=== PATIENT | male | born 2000 | race Caucasian/White ===

== ENCOUNTER 2020-05-13 18:55 | Emergency (ER) | payer OTHER ==
[~2020-05-13] VITALS: Ht 172.7 cm; Wt 54.4 kg
[2020-05-13 18:59] VITALS: Ht 172.7 cm; Wt 54.4 kg
[2020-05-13 19:13] LABS: BASOPHIL % 0.3 % (0-2); PLATELET COUNT 210 x10^3mcL (130-400); RED CELL DISTRIBUTION WIDTH 13.4 % (11.5-14.5)
[2020-05-13 19:22] LABS: CARBON DIOXIDE 27.7 mmol/L (21-32); CHLORIDE SERUM 103 mmol/L (98-107); CREATININE SERUM 1.2 mg/dL (0.7-1.3); GFR1 > 60 mL/min; GLUCOSE SERUM 104 mg/dL (74-106); POTASSIUM SERUM 4.2 mmol/L (3.5-5.1); SODIUM SERUM 141 mmol/L (136-145)
[2020-05-13 19:34] LABS: ALBUMIN 4.4 g/dL (3.4-5.0); ALKALINE PHOSPHATASE 79 U/L (46-116); ALT/SGPT 170 U/L (16-63); AST/SGOT 49 U/L (15-37); BILIRUBIN TOTAL 0.89 mg/dL (0.20-1.00); TOTAL PROTEIN, SERUM 7.6 g/dL (6.4-8.2)
[2020-05-13 19:35] LABS: microscopic required? NO
[2020-05-13 19:50] LABS: urine erythrocyte NEGATIVE (NEGATIVE)
[2020-05-13 20:00] LABS: AMPHETAMINE QUAL UR NONE DETECTED (See below)
[2020-05-13 23:24] VITALS: BP 124/76
== END 2020-05-13 23:24 | disposition short-term general hospital (02) ==
LOC: ED 18:55
PROVIDERS: Emergency Medicine
DX: S40.812A Abrasion of left upper arm, initial encounter (principal); R45.851 Suicidal ideations; F31.9 Bipolar disorder, unspecified; Z20.828 Contact with and (suspected) exposure to other viral communicable diseases; W26.0XXA Contact with knife, initial encounter; Y93.89 Activity, other specified; Y92.89 Other specified places as the place of occurrence of the external cause; Y99.8 Other external cause status
CPT/HCPCS: G0480; U0003